=== PATIENT | male | born 1980 | race Caucasian/White ===

== ENCOUNTER 2017-10-09 13:04 | Day surgery (SDC) | payer OTHER ==
[2017-10-08 17:37] VITALS: BMI 25.0
[~2017-10-09 13:04] MED LIST: Cyclopentolate 1% Opth Drop 2 ML BOT FS SCH; Fluorouracil 100 MG, Enoxaparin Sodium 25 MG, EPINEPHrine 0.3 MG in Ophthalmic Irrigati... IVPB SCH; Phenylephrine 2.5% Ophth Soln 5 ML BOT FS SCH
[2017-10-09] MEDS ORDERED: Triamcinolone 40 MG/ML VIAL ONE ×2 (14:09→14:58)
[2017-10-09] MEDS ORDERED: Lidocaine 4% PF 5 ML AMP ONE (14:58)
[2017-10-09] MEDS ORDERED: Lidocaine 1% PF 5 ML VIAL ONE ×2 (14:58)
[2017-10-09] MEDS ORDERED: PROPOFOL 200 MG/20 ML VIAL ONE (14:58)
[2017-10-09] MEDS ORDERED: CEFAZOLIN 1 GM VIAL ONE (14:58)
[2017-10-09] MEDS ORDERED: Maxitrol 0.1% Opth Oint 3.5 GM TUBE ONE (14:58)
[2017-10-09] MEDS ORDERED: Bupivacaine 0.75% 10 ML AMP ONE (14:58)
[2017-10-09] MEDS ORDERED: Phenylephrine 2.5% Ophth Soln 5 ML BOT ONE (15:12)
[2017-10-09] MEDS ORDERED: Cyclopentolate 1% Opth Drop 2 ML BOT ONE (15:12)
[2017-10-09] MEDS ORDERED: Midazolam HCl 2 mg/2 ml Vial ONE (17:10)
[2017-10-09] MEDS ORDERED: Fentanyl 100 MCG/2 ML VIAL ONE (17:10)
--- NOTE | 2017-10-10 00:58 | OP ---
DATE OF SURGERY: 10/09/2017 PREOPERATIVE DIAGNOSIS: Rhegmatogenous retinal detachment, left eye. POSTOPERATIVE DIAGNOSIS: Rhegmatogenous retinal detachment, left eye. PROCEDURE: Pars plana vitrectomy and retinal detachment repair, left eye. SURGEON: Jordan Orlando MD ANESTHESIA: General endotracheal anesthesia. COMPLICATIONS: None. PROCEDURE IN DETAIL: The patient was identified in the preoperative holding area. Appropriate infor med consent for the planned surgical procedure on left eye had been obtained. The patient was transp orted to the operative suite where general endotracheal anesthesia was initiated. Retrobulbar block was placed. The patient was prepped and draped in the usual sterile manner for ophthalmic surgery on the left eye. Lid speculum was placed in the left eye. The 25-gauge trocar was placed in conjuncti va and sclera supratemporally, inferotemporally, and supranasally. Infusion line was placed inferote mporally. Light pipe and vitreous cutter were inserted into the eye. Core vitrectomy was performed. Careful inspection revealed a horseshoe tears at the 1 o'clock and 2 o'clock meridians at the vitre ous base. Posterior drain retinotomy was created in 10 minutes being allowed for fluid to drain post eriorly. A 360 laser was placed using endolaser delivery device with special attention to the superi or temporal quadrant. A 28% sulfur hexafluoride gas was infused into the eye. Trocars were removed. Sclerotomy suture closed with 6-0 plain gut suture. The eye was noted to retain pressure well. Re trobulbar Kenalog and subconjunctival Ancef were placed. Antibiotic ointment placed and the eye was patched and shielded. The patient was advised to position left side down. Follow up in the morning with Dr. Orlando.
== END 2017-10-09 19:34 | disposition home or self-care (01) ==
LOC: SDC 13:04
PROVIDERS: ATTEND Ophthalmology Retina Specialist
PROC: 08QF3ZZ Repair Left Retina, Percutaneous Approach (ICD-10-PCS; principal; 2017-10-09)
PROC: 08T53ZZ Resection of Left Vitreous, Percutaneous Approach (ICD-10-PCS; principal; 2017-10-09)
DX: H33.022 Retinal detachment with multiple breaks, left eye (principal)
CPT/HCPCS: 67025; J0171; J0690; J1650; J2001; J2250; J2704; J3010; J3301; J3490; J9190